=== PATIENT | female | born 2000 | race Caucasian/White ===

== ENCOUNTER → 2022-08-02 08:34 | Outpatient (CLI) | payer MEDICAID, SELFPAY ==
[2022-08-02 09:48] LABS: HCG,Quantitative 147 mIU/ml (0-5.42)
[2022-08-03 14:46] LABS: Progesterone 15.1 ng/mL (.)
== END ==
PROVIDERS: Emergency Medicine; PCP Internal Medicine; Visit Provider Obstetrics & Gynecology
DX: Z34.91 Encounter for supervision of normal pregnancy, unspecified, first trimester (principal)
CPT/HCPCS: 36415; 84144; 84702

== ENCOUNTER → 2022-08-23 14:07 | Outpatient (CLI) | payer MEDICAID, SELFPAY | PROVIDERS: Visit Provider Obstetrics & Gynecology | DX: Z34.90 Encounter for supervision of normal pregnancy, unspecified, unspecified trimester (principal) | CPT/HCPCS: 87086 ==

== ENCOUNTER → 2022-09-20 10:16 | Outpatient (CLI) | payer MEDICAID, SELFPAY ==
[2022-09-20 10:39] LABS: Basophils # 0.1 K/mm3 (0-0.2); Basophils % 0.8 % (0.1-2.0); Eosinophils # 0.3 K/mm3 (0.0-0.4); Eosinophils % 3.7 % (0.1-12.0); Hematocrit 38.8 % (37.0-47.0); Lymphocytes # 1.9 K/mm3 (0.7-4.5); Lymphocytes % 21.6 % (10-50); Mean Corpuscular HGB Conc 33.6 g/dL (31.8-35.4); Mean Corpuscular Hemoglobin 30.1 pg (27.0-31.2); Mean Corpuscular Volume 89.7 fl (81-99); Mean Platelet Volume 6.8 fl (7.4-10.4); Monocytes # 0.5 K/mm3 (0.1-1.0); Monocytes % 5.4 % (1.7-9.3); Neutrophils # 6.1 K/mm3 (1.8-7.8); Neutrophils % 68.5 % (37.0-80.0); Platelet Count 218 K/mm3 (142-424); Red Blood Count 4.32 M/mm3 (4.20-5.40); White Blood Count 8.9 K/mm3 (4.8-10.8)
[2022-09-21 10:26] LABS: HIV Screen 4th Generation wRfx Non Reactive (Non Reactive)
[2022-09-27 20:19] LABS: Hepatitis B Surface Antigen NEGATIVE; Hepatitis C Antibody 0.2; Rapid Plasma Reagin Ab Titer NON REACTIVE
== END ==
PROVIDERS: Visit Provider Obstetrics & Gynecology
DX: Z34.90 Encounter for supervision of normal pregnancy, unspecified, unspecified trimester (principal)
CPT/HCPCS: 36415; 85025; 86593; 86703; 86762; 86850; 87340; 87380; G0432

== ENCOUNTER → 2022-11-25 12:54 | Outpatient (CLI) | payer MEDICAID, SELFPAY ==
--- NOTE | 2022-11-25 12:57 | US_ITS ---
FINAL REPORT CLINICAL HISTORY: anatomy scan please use anatomy template FINDINGS: There is a single live intrauterine gestation. Presentation is cephalic. The cervix is closed and measures 3.1 cm. Placenta is posterior and grade 1. movement is noted. Cardiac activity is confirmed at 142 beats per minute. Three-vessel cord with satisfactory umbilical cord insertion. Four-chamber heart is noted. brain and ventricles are unremarkable. Chest and diaphragm are unremarkable. ABDOMEN: Both kidneys are unremarkable. Stomach is unremarkable. SPINE: No anomalies identified. Both arms and legs noted. AMNIOTIC FLUID: Appropriate amount. MEASUREMENTS: ULTRASOUND AGE: 21 weeks 0 days. GESTATION AGE: 19 weeks 6 days. ESTIMATED WEIGHT: 379 g GROWTH PERCENTILE: 92% BPD: 5.0 cm consistent with 21 weeks 2 days. OFD: 6.5 cm consistent with 21 weeks 3 days. HC: 18.2 cm consistent with 20 weeks 5 days. AC: 15.8 cm consistent with 21 weeks 0 days. FL: 3.4 cm consistent with 20 weeks 5 days. CEREBELLUM: 1.9 cm consistent with 19 weeks 6 days. HUMERUS: 3.2 cm consistent with 20 weeks 5 days. HC/AC: 1.15 CI: 78% FL/BPD: 67% FL/AC: 21% IMPRESSION: Single living IUP with an ultrasound age of 21 weeks 0 days. No anomalies noted. Reviewed, Interpreted and Dictated by Emanuel Reagan III, MD Transcribed by Elvis Castañeda Authenticated and [facility]
== END ==
PROVIDERS: PCP Obstetrics & Gynecology; Visit Provider Obstetrics & Gynecology
DX: Z34.90 Encounter for supervision of normal pregnancy, unspecified, unspecified trimester (principal); Z3A.20 20 weeks gestation of pregnancy
CPT/HCPCS: 76811